=== PATIENT | male | born 1950 | race Caucasian/White ===

== ENCOUNTER 2020-11-15 15:36 | Emergency (ER) | payer MEDICARE, MEDICAID, SELFPAY ==
[2020-11-15 15:37] VITALS: BP 134/81; PULSE 93; RESP 18; TEMP 36.7; O2SAT 96; BMI 29.7
--- NOTE | 2020-11-15 15:43 | ED.DCSUM_ITS ---
History of Present Illness Chief Complaint: ETOH Intox Informant: Patient Narrative: Patient states I am a drunk and I want detox. He cannot tell how long he has been an alcoholic, he indicates that he has been drinking heavily for the past 4 days, over half of 1/5 of whiskey per day approximately. Other than marijuana no other illicit drug use or other alcohol. He feels shaky in the morning before he drinks, then drinking alcohol he feels better. Currently he feels drunk and denies any other symptoms. He had a traumatic AKA remotely, states he has chronic low back pain and phantom left lower extremity pain. He is supposed to be on blood pressure medication but does not have any. - Past Medical History (1) Alcoholism Status: Chronic (2) Hypertension Status: Chronic Past Medical History - Allergies and Home Meds Allergies/Adverse Reactions: Allergies No Known Allergies Allergy (Verified 11/15/20 15:37) Primary Care Physician: NOT,DEFINED [NON-STAFF] - Surgical History: - - Left AKA Smoking Status: Never smoker Alcohol: Heavy Drugs: Marijuana Review of Systems General: Denies: Chills, Fever, Sweats Eyes: Denies: Visual changes - bilaterally, Diplopia ENT: Denies: Rhinorrhea, Sore throat Cardiovascular: Denies: Chest pain, Palpitations Respiratory: Denies: Dyspnea, Cough, Dyspnea on exertion Gastrointestinal: Denies: Abdominal pain, Nausea, Vomiting, Diarrhea, Melena, Hematochezia Genitourinary: Denies: Dysuria, Hematuria, Frequency Musculoskeletal: Reports: Back pain - Low, chronic. Denies: Swelling, Extremity Pain Skin: Denies: Rash, Wounds Neurological: Denies: Headache, Weakness, Numbness Physical Exam Vital Signs/Narrative: Vital Signs Temp Pulse Resp BP Pulse Ox 11/15/20 15:37 98.1 F 93 18 134/81 H 96 Inital Vital Signs reviewed: Yes General: Well nourished, Well developed, No Acute Distress - Cooperative, intoxicated Head: Normocephalic, Atraumatic Eyes: Perrl, EOMI ENT: Moist mucous membranes, No rhinorrhea Neck: Supple, Nontender Cardiovascular: Regular rate, Regular rhythm, No murmurs Respiratory: No distress, CTA bilaterally, Chest nontender Abdomen: Soft, Nontender, Nondistended, Normal bowel sounds Back: Nontender, Normal Inspection Extremities: Nontender, No edema, - - Left lower extremity AKA stump is soft, nontender, well-healed, benign Skin: Normal color, No rash Neurological: Alert, Oriented x3, Cranial nerves II-XII grossly intact, Normal Strength, Normal Sensation Psychological: Normal affect, Normal Mood Diagnostic/Tx/Re-eval Laboratory Results 11/15/20 11/15/20 11/15/20 15:20 16:25 16:25 WBC 6.3 RBC 4.34 L Hgb 14.5 Hct 44.2 MCV 101.8 H MCH 33.4 H MCHC 32.8 RDW Std Deviation 47.4 H RDW Coeff of Betzy 12.6 Plt Count 135 L MPV 10.1 Immature Gran % (Auto) 0.300 Neut % (Auto) 63.6 Lymph % (Auto) 24.6 [place] % (Auto) 10.2 H Eos % (Auto) 0.8 Baso % (Auto) 0.5 Absolute Neuts (auto) 4.0 Absolute Lymphs (auto) 1.54 Nucleated RBC % 0 PT 14.9 INR 1.2 Sodium Potassium Chloride Carbon Dioxide Anion Gap BUN Creatinine Estim Creat Clear Calc Est GFR (MDRD) Af Amer Est GFR (MDRD) Non-Af BUN/Creatinine Ratio Glucose Calcium Total Bilirubin AST ALT Alkaline Phosphatase Total Protein Albumin Globulin Albumin/Globulin Ratio Urine Opiates Screen NEGATIVE Urine Methadone Screen NEGATIVE Ur Barbiturates Screen NEGATIVE Ur Phencyclidine Scrn NEGATIVE Ur Amphetamines Screen NEGATIVE U Methamphetamin-MDMA NEGATIVE U Benzodiazepines Scrn NEGATIVE Urine Cocaine Screen NEGATIVE U Cannabinoids Screen POSITIVE H Ur Drug Screen Comment Ethyl Alcohol 11/15/20 11/15/20 16:25 16:25 WBC RBC Hgb Hct MCV MCH MCHC RDW Std Deviation RDW Coeff of Betzy Plt Count MPV Immature Gran % (Auto) Neut % (Auto) Lymph % (Auto) Charlotte % (Auto) Eos % (Auto) Baso % (Auto) Absolute Neuts (auto) Absolute Lymphs (auto) Nucleated RBC % PT INR Sodium 139 Potassium 3.7 Chloride 107 Carbon Dioxide 24.0 Anion Gap 8 BUN 8 Creatinine 0.70 Estim Creat Clear Calc 67.75 Est GFR (MDRD) Af Amer 142 Est GFR (MDRD) Non-Af 117 BUN/Creatinine Ratio 11.4 Glucose 87 Calcium 8.3 L Total Bilirubin 1.10 H AST 42 H ALT 31 Alkaline Phosphatase 77 Total Protein 7.4 Albumin 2.9 L Globulin 4.5 H Albumin/Globulin Ratio 0.6 L Urine Opiates Screen Urine Methadone Screen Ur Barbiturates Screen Ur Phencyclidine Scrn Ur Amphetamines Screen U Methamphetamin-MDMA U Benzodiazepines Scrn Urine Cocaine Screen U Cannabinoids Screen Ur Drug Screen Comment Ethyl Alcohol 163.0 - Medical Decision Making Patient was observed, he was cooperative. I reevaluated him and had a discussion with him after he sobered up a little more. He states that he loves drinking, but states that today he freaked out and knows that he is a drunk and then alcohol is ruining his life. However, he states that there are multiple times where he does not drink for a day, and he does not get withdrawal symptoms, such as 4-5 days ago. However he starts drinking again because he actually enjoys it. I do not think inpatient detox is going to help this pa tient today. I discussed that with him, as well as my recommendation that he follow-up at [facility], which is here in [place], he lives in [facility], and he has never heard of it. He is amenable to that, but concerned that he does not have a ride, when asked if he has family or friends that could potentially take him, he states that he thinks he has burned all of his bridges. He wants to go home right now. He was given resources for [facility] by social work. ED Disposition - Plan for ED Patient: Disposition: Home or Assisted Living Diagnosis: Alcoholism, Alcohol intoxication Instructions: ED Alcohol Abuse Referrals: [facility] [STAFF PHYSICIAN] - As soon as possible
[2020-11-15 16:48] LABS: Absolute Lymphocyte Count 1.54 X10^3/uL (0.83-4.51); Basophil# 0.03 X10^3/uL; Basophil% 0.5 % (0-1); Eosinophil# 0.05 X10^3/uL; Eosinophils% 0.8 % (0-5); Hematocrit 44.2 % (40-54); Hemoglobin 14.5 g/dL (13.0-16.5); Lymphocyte # 1.54 X10^3/ul (4.0); Lymphocyte % 24.6 % (19-41); Mean Corp Hgb Conc 32.8 g/dL (32-36); Mean Corpuscular Hgb 33.4 pg (27.0-32.0); Mean Corpuscular Volume 101.8 fL (80-94); Mean Platelet Vol. 10.1 fl (6.2-12.0); Monocyte# 0.64 X10^3/uL; Monocyte% 10.2 % (0-10); NRBC Flagged by Analyzer 0 % (0-5); Neutrophil # 3.99 X10^3/uL (2.7-7.7); Neutrophil % 63.6 % (47-70); Platelet Count 135 K/mm3 (150-450); RBC Distribution Width CV 12.6 % (11.6-14.6); RBC Distribution Width SD 47.4 fl (35.1-43.9); Red Blood Count 4.34 M/mm3 (4.6-6.2); White Blood Count 6.3 K/mm3 (4.4-11.0)
[2020-11-15 16:57] LABS: Prothrombin Time (Protime)PT. 14.9 SECONDS (11.7-14.9)
[2020-11-15 16:58] LABS: International Normalized Ratio 1.2
[2020-11-15 17:01] LABS: ALB/GLOB Ratio 0.6 RATIO (0.9-2.4); AST(SGOT) 42 U/L (15-37); Alanine Aminotransfer ALT/SGPT 31 U/L (16-61); Albumin, Serum 2.9 g/dL (3.2-5.0); Alkaline Phosphatase 77 U/L (45-117); Anion Gap 8 (5-15); BUN 8 mg/dL (7-18); BUN/Creat Ratio 11.4 RATIO (10-20); Calcium,Total 8.3 mg/dL (8.5-10.1); Chloride 107 mmol/L (98-107); EST Glomerular Filtration Rate 117 mL/min (>60); Est Glom Filt Rate - Afr Amer 142 mL/min (>60); Estimated Creatinine Clearance 67.75 ml/min; Globulin 4.5 g/dL (2.2-4.2); Glucose 87 mg/dL (74-106); Potassium 3.7 mmol/L (3.5-5.1); Protein, Total 7.4 g/dL (6.4-8.2); Sodium Level 139 mmol/L (136-145)
[2020-11-15 17:21] LABS: Amphetamine Urine VISTA NEGATIVE (<1000 ng/mL); Barbiturate Urine VISTA NEGATIVE (< 200 ng/mL); Benzodiazepine Urine VISTA NEGATIVE (< 200 ng/mL); Cocaine Urine VISTA NEGATIVE (< 300 ng/mL); Ecstacy Urine VISTA NEGATIVE (< 500 ng/mL); Methadone Urine VISTA NEGATIVE (< 300 ng/mL); PCP Urine VISTA NEGATIVE (< 25 ng/mL); THC Urine VISTA POSITIVE (< 50 ng/mL); Vista UDS pH Range 6
[2020-11-15 17:24] VITALS: BP 97/64; PULSE 79; RESP 16; O2SAT 95
--- NOTE | 2020-11-15 17:41 | ED.RN ---
tried to call ex Alyce for a ride but phone number does not work.
--- NOTE | 2020-11-15 18:13 | CM.ED ---
SOCIAL WORK Informant: Dr. Dexter Reason for Consult: Resources from Substance Abuse-Alcohol Met with patient in room. Introduced role and reason for referral. Patient report I've been drinking for 80 years. I probably do need to stop. Patient provided with [facility] resource folder. Patient states will look into options. Patient waiting on ride at this time. Plan: Home with resources provided. Nicolasa Gipson, INSTALLMENT DEALER, WASTE WATER OR WATER PLANT OPERATOR
--- NOTE | 2020-11-15 18:14 | ED.RN ---
FRIEND CALLS STATING THAT HE WILL TAKE PATIENT HOME, PATIENT MADE AWARE.
== END 2020-11-15 19:45 | disposition home or self-care (01) ==
PROVIDERS: Emergency Provider Emergency Medicine; PCP Family Medicine
DX: F10.229 Alcohol dependence with intoxication, unspecified (principal); G89.29 Other chronic pain
CPT/HCPCS: 36415; 80053; 80307; 80320; 85025; 85610; 99285; A4216; G0480

== ENCOUNTER 2021-02-12 19:04 | Emergency (ER) | payer MEDICARE, MEDICAID, SELFPAY ==
[2021-02-12 19:05] VITALS: BP 138/90; PULSE 94; RESP 18; TEMP 36.6; O2SAT 97; BMI 32.3
--- NOTE | 2021-02-12 19:17 | CM.ED ---
SOCIAL WORK Discussed case with nursing. Patient presents to ER heavily intoxicated and reporting suicidal ideation. Unable to assess at this time. Crisis to assess once medically cleared. Nicolasa Gipson, DIRECTOR INFORMATICS, TAR DISTILLATION SUPERVISOR
[2021-02-12 19:31] LABS: Absolute Lymphocyte Count 1.86 X10^3/uL (0.83-4.51); Absolute Neutrophil Count 3.8 X10^3/uL (2.0-7.7); Basophil# 0.04 X10^3/uL; Basophil% 0.6 % (0-1); Eosinophil# 0.08 X10^3/uL; Eosinophils% 1.2 % (0-5); Hematocrit 46.2 % (40-54); Hemoglobin 15.5 g/dL (13.0-16.5); Lymphocyte # 1.86 X10^3/ul (4.0); Lymphocyte % 27.5 % (19-41); Mean Corp Hgb Conc 33.5 g/dL (32-36); Mean Corpuscular Hgb 34.1 pg (27.0-32.0); Mean Corpuscular Volume 101.8 fL (80-94); Mean Platelet Vol. 10.1 fl (6.2-12.0); Monocyte# 0.99 X10^3/uL; Monocyte% 14.6 % (0-10); NRBC Flagged by Analyzer 0 % (0-5); Neutrophil # 3.78 X10^3/uL (2.7-7.7); Platelet Count 180 K/mm3 (150-450); RBC Distribution Width CV 13.5 % (11.6-14.6); RBC Distribution Width SD 51.4 fl (35.1-43.9); Red Blood Count 4.54 M/mm3 (4.6-6.2); White Blood Count 6.8 K/mm3 (4.4-11.0)
--- NOTE | 2021-02-12 19:34 | ED.RN ---
Addendum entered by Brittany Caruso 02/12/21 19:34: PT ATTEMPTED TO PROVIDE URINE SAMPLE BUT WAS UNABLE. Original Note: PT ATTEMPTED TO PROVIDE URINE SAMPLE UNABLE.
[2021-02-12 19:45] LABS: Anion Gap 6 (5-15); BUN 8 mg/dL (7-18); Calcium,Total 8.6 mg/dL (8.5-10.1); Chloride 105 mmol/L (98-107); Creatinine, Serum 0.88 mg/dL (0.70-1.30); EST Glomerular Filtration Rate 90 mL/min (>60); Est Glom Filt Rate - Afr Amer 109 mL/min (>60); Estimated Creatinine Clearance 68.47 ml/min; Glucose 111 mg/dL (74-106); Potassium 3.1 mmol/L (3.5-5.1); Sodium Level 142 mmol/L (136-145)
[2021-02-12 20:15] VITALS: BP 125/76; PULSE 91; RESP 14; O2SAT 94
[2021-02-12 20:18] LABS: Amphetamine Urine VISTA NEGATIVE (<1000 ng/mL); Barbiturate Urine VISTA NEGATIVE (< 200 ng/mL); Benzodiazepine Urine VISTA NEGATIVE (< 200 ng/mL); Cocaine Urine VISTA NEGATIVE (< 300 ng/mL); Ecstacy Urine VISTA NEGATIVE (< 500 ng/mL); Methadone Urine VISTA NEGATIVE (< 300 ng/mL); PCP Urine VISTA NEGATIVE (< 25 ng/mL); THC Urine VISTA POSITIVE (< 50 ng/mL); Vista UDS pH Range 6
--- NOTE | 2021-02-12 20:22 | ED.RN ---
FAXED EVERYTHING TO [facility]
--- NOTE | 2021-02-12 20:28 | ED.VISSUMM ---
- ER Visit Summary Date of Service: 02/12/21 Chief Complaint: Suicidal ideation History of Present Illness: The patient is a 71 M presenting with suicidal ideation and alcohol intoxication. Patient's nephew called police when he found him intoxicated and suicidal. Patient was asking for a rope to hang himself. He states he has plans to cut his arms to end his life. He has past suicide attempt many years ago running in front of a car. He states he was drinking heavily today. He admits to marijuana use. Physical Examination: Vitals are stable. Patient is afebrile. Alert no acute distress. HEENT exam is unremarkable. Neck is supple. Lungs are clear and equal bilaterally. Heart is regular rate and rhythm. Abdomen is soft nontender nondistended. Extremities are unremarkable. Skin is warm and dry. No focal neurologic deficit. Suicidal ideation, alcohol intoxication Remainder of exam is unremarkable. Emergency Department Course and Treatment: CBC, chemistries unremarkable other than potassium 3.1, glucose 111. Covid negative. Tox positive for cannabinoids. Alcohol level 250. Patient will be observed. Will discuss with counseling center for evaluation. Disposition: Per counseling center Impression: Alcohol intoxication, suicidal ideation This note was generated with [employer] dictation software. It may contain incorrect words, spelling, and punctuation that were not noted in review of the chart prior to signing ED Disposition - Plan for ED Patient: Referrals: Maricruz Cabrera DO [Primary Care Provider] -
[2021-02-12 21:01] VITALS: BP 94/51; PULSE 90; RESP 12; O2SAT 94
[2021-02-12 22:43] VITALS: RESP 15
[2021-02-12 23:50] VITALS: RESP 14
[2021-02-13] VITALS (10 sets, daily range): BP systolic 96–174; BP diastolic 56–69; PULSE 86–97; RESP 13–18; O2SAT 93–99
--- NOTE | 2021-02-13 05:36 | ED.RN ---
FACE SHEET FAXED TO [facility].
[2021-02-13] MEDS: LORazepam 2 MG/ML Syringe 1 MG IV (06:09)
== END 2021-02-13 08:14 ==
PROVIDERS: Emergency Medicine; Emergency Provider Emergency Medicine; PCP Family Medicine
DX: F10.129 Alcohol abuse with intoxication, unspecified (principal); R45.851 Suicidal ideations; F17.200 Nicotine dependence, unspecified, uncomplicated
CPT/HCPCS: 80048; 80307; 82077; 85025; 87426; 96374; 99285; A4216